=== PATIENT | female | born 1985 | race African-American/Black ===

== ENCOUNTER 2017-05-06 00:23 | Emergency (ER) | payer SELFPAY ==
[2017-05-06 00:52] VITALS: BP 150/94; PULSE 75; RESP 18; TEMP 37; O2SAT 98; BMI 47.4
--- NOTE | 2017-05-06 01:08 | [facility].EDGENADL ---
ED Disposition Clinical Impression: Fractured tooth Qualifiers: Encounter type: initial encounter Fracture type: closed Qualified Code(s): S02.5XXA - Fracture of tooth (traumatic), initial encounter for closed fracture Disposition: Home, Self-Care Condition on Discharge: Good Instructions: DI for Fractured Tooth Additional Instructions: Please take the medication prescribed as instructed, call the maxillofacial surgeon in the morning and request to reschedule the surgery at a sooner date. Prescriptions: cephALEXin [Keflex 500mg Cap] 500 mg PO QID #40 cap Tramadol HCl [Ultram 50mg tablet] 50 mg PO QID #12 tab Forms: Work/School Release Time of Disposition: :12 - Critical Care Critical Care Time: No Attestation: On 05/06/17, the high probability of a clinically significant, sudden or life threatening deterioration of the following system(s) required my full and direct attention, intervention and personal management. The time I documented below is in addition to time spent performing reported procedures but includes the following listed in this critical care notation. Medical Decision Making Vital Signs: 05/06/17 00:52 Temperature 98.6 F Temperature Source Oral Pulse Rate [Right Radial] 75 Respiratory Rate 18 Blood Pressure [Right Arm] 150/94 Blood Pressure Mean [Right Arm] 112 Blood Pressure Source [Right Arm] Automatic Cuff Blood Pressure Position [Right Arm] Sitting 02 Sat by Pulse Oximetry 98 Oxygen Delivery Method Room Air Orders (Tests/Meds): ED MEDICATIONS Discontinued Medications Generic Name Dose Route Start Last Admin Trade Name Freq PRN Reason Stop Dose Admin Cephalexin HCl 500 mg 05/06/17 01:07 05/06/17 01:18 Cephalexin 500mg Capsule PO 05/06/17 01:08 500 mg ONCE ONE Administration Protocol Tramadol HCl 50 mg 05/06/17 01:07 05/06/17 01:18 Ultram 50mg Tablet PO 05/06/17 01:08 50 mg ONCE ONE Administration Tramadol HCl 1 kika 05/06/17 01:07 05/06/17 01:17 Ultram Take Home Pack 50mg (10) PO 05/06/17 01:08 1 kika ONCE ONE Administration - Beto Inquiry Pt receiving controlled substance: Yes Beto was queried for this patient: No Reason not queried -: Hospital network issues Risks and benefits of using a controlled substance: were discussed with pt by me - Reevaluation(s) Time: 01:34 Reevaluation #1: Patient appears medically stable, in minimal distress, instructed to call the maxillofacial surgeon's office and request to change her upcoming appointment or sooner today. General Adult HPI - General Chief complaint: PAIN Stated complaint: Cracked Tooth,Pain on Lft Side Time Seen by Provider: 05/06/17 01:00 Mode of Arrival: Ambulatory Source of Information: Patient Limitations: No Limitations Description of Symptoms (Recalled from ER Triage Doc. by RN): LEFT BOTTOM SECOND TO LAST TOOTH PAIN. PT REPORTS SHE IS UNABLE TO GET INTO SURGERY FOR A FEW WEEKS. - History of Present Illness MD complaint: toothache Onset (ago): day(s) (7) Location: face Radiation: non-radiation Severity: moderate Severity scale (1-10): 8 Quality: crushing, sharp Consistency: constant Relieving factors: none Exacerbating factors: cold therapy Treatments prior to arrival: other (Motrin/Tylenol) - Related Data Previous Rx's Medication Instructions Recorded Tramadol HCl [Ultram 50mg 50 mg PO QID #12 tab 05/06/17 tablet] cephALEXin [Keflex 500mg Cap] 500 mg PO QID #40 cap 05/06/17 Allergies Allergy/AdvReac Type Severity Reaction Status Date / Time No Known Allergies Allergy Verified 05/06/17 01:03 [facility] History I have reviewed the patient's past medical history: Yes Amputation: No Fractures: No - *Social History Educational Level: Completed College Alcohol Intake: never - Psychiatric History Expresses thoughts of harming self/others: None Suicide Plan Description: No Plan *Family Hx:: No significant family history ROS
--- NOTE | 2017-05-06 01:11 | ED_ITS ---
ED Disposition Clinical Impression: Fractured tooth Qualifiers: Encounter type: initial encounter Fracture type: closed Qualified Code(s): S02.5XXA - Fracture of tooth (traumatic), initial encounter for closed fracture Disposition: Home, Self-Care Condition on Discharge: Good Instructions: DI for Fractured Tooth Additional Instructions: Please take the medication prescribed as instructed, call the maxillofacial surgeon in the morning and request to reschedule the surgery at a sooner date. Prescriptions: cephALEXin [Keflex 500mg Cap] 500 mg PO QID #40 cap Tramadol HCl [Ultram 50mg tablet] 50 mg PO QID #12 tab Forms: Work/School Release Time of Disposition: :12 - Critical Care Critical Care Time: No Attestation: On 05/06/17, the high probability of a clinically significant, sudden or life threatening deterioration of the following system(s) required my full and direct attention, intervention and personal management. The time I documented below is in addition to time spent performing reported procedures but includes the following listed in this critical care notation. Medical Decision Making Vital Signs: 05/06/17 00:52 Temperature 98.6 F Temperature Source Oral Pulse Rate [Right Radial] 75 Respiratory Rate 18 Blood Pressure [Right Arm] 150/94 Blood Pressure Mean [Right Arm] 112 Blood Pressure Source [Right Arm] Automatic Cuff Blood Pressure Position [Right Arm] Sitting 02 Sat by Pulse Oximetry 98 Oxygen Delivery Method Room Air Orders (Tests/Meds): ED MEDICATIONS Discontinued Medications Generic Name Dose Route Start Last Admin Trade Name Freq PRN Reason Stop Dose Admin Cephalexin HCl 500 mg 05/06/17 01:07 05/06/17 01:18 Cephalexin 500mg Capsule PO 05/06/17 01:08 500 mg ONCE ONE Administration Protocol Tramadol HCl 50 mg 05/06/17 01:07 05/06/17 01:18 Ultram 50mg Tablet PO 05/06/17 01:08 50 mg ONCE ONE Administration Tramadol HCl 1 kika 05/06/17 01:07 05/06/17 01:17 Ultram Take Home Pack 50mg (10) PO 05/06/17 01:08 1 kika ONCE ONE Administration - Beto Inquiry Pt receiving controlled substance: Yes Beto was queried for this patient: No Reason not queried -: Hospital network issues Risks and benefits of using a controlled substance: were discussed with pt by me - Reevaluation(s) Time: 01:34 Reevaluation #1: Patient appears medically stable, in minimal distress, instructed to call the maxillofacial surgeon's office and request to change her upcoming appointment or sooner today. General Adult HPI - General Chief complaint: PAIN Stated complaint: Cracked Tooth,Pain on Lft Side Time Seen by Provider: 05/06/17 01:00 Mode of Arrival: Ambulatory Source of Information: Patient Limitations: No Limitations Description of Symptoms (Recalled from ER Triage Doc. by RN): LEFT BOTTOM SECOND TO LAST TOOTH PAIN. PT REPORTS SHE IS UNABLE TO GET INTO SURGERY FOR A FEW WEEKS. - History of Present Illness MD complaint: toothache Onset (ago): day(s) (7) Location: face Radiation: non-radiation Severity: moderate Severity scale (1-10): 8 Quality: crushing, sharp Consistency: constant Relieving factors: none Exacerbating factors: cold therapy Treatments prior to arrival: other (Motrin/Tylenol) - Related Data Previous Rx's
== END 2017-05-06 01:35 | disposition home or self-care (01) ==
PROVIDERS: Emergency Provider Emergency Medicine
DX: S02.5XXA Fracture of tooth (traumatic), initial encounter for closed fracture (principal); X58.XXXA Exposure to other specified factors, initial encounter
CPT/HCPCS: 99282